=== PATIENT | male | born 1985 | race African-American/Black ===

== ENCOUNTER 2016-10-17 02:31 | Emergency (ER) | payer BC, OTHER ==
[~2016-10-17] VITALS: Ht 180.3 cm; Wt 86.2 kg
== END 2016-10-17 03:29 | disposition home or self-care (01) ==
LOC: CED 02:31
DX: H66.91 Otitis media, unspecified, right ear (principal); F17.200 Nicotine dependence, unspecified, uncomplicated
CPT/HCPCS: 99282